=== PATIENT | female | born 1985 | race Caucasian/White ===

== ENCOUNTER 2020-11-21 18:05 | Emergency (ER) | payer BC ==
[2020-11-21 18:13] VITALS: BP 120/81; PULSE 77; TEMP 98.2; BMI 26.3
[2020-11-21] MEDS ORDERED: ACETAMINOPHEN 500 MG TABLET (FP) PO ONE (19:13)
[2020-11-21 20:00] LABS: BASO % 0.3 % (0-2.0); EOS % 2.1 % (0-4.5); HEMATOCRIT 35.7 % (32.4-45.2); LYMPH % 24.8 % (8-40); MCH 29.9 pg (25.7-33.7); MCHC 33.5 g/dl (32.0-36.0); MEAN CELL VOLUME 89.4 fl (80-96); MEAN PLT VOLUME 7.3 fl (7.5-11.1); MONO % 8.5 % (3.8-10.2); NEUT % 64.3 % (42.8-82.8); PLATELET COUNT 258 10^3/uL (134-434); RDW 13.9 % (11.6-15.6); WHITE BLOOD COUNT 6.8 K/mm3 (4.0-10.0)
[2020-11-21 20:17] LABS: PH,URINE 6.5 (5.0-8.0); URINE APPEARANCE Clear; URINE BILIRUBIN Negative (NEGATIVE); URINE COLOR Yellow; URINE GLUCOSE (UA) Negative (NEGATIVE); URINE KETONE Negative (NEGATIVE); URINE LEUK ESTERASE Negative (NEGATIVE); URINE NITRITE Negative (NEGATIVE); URINE PROTEIN Negative (NEGATIVE); URINE UROBILINOGEN 0.2 mg/dL (0.2-1.0)
[2020-11-21] MEDS ORDERED: ACETAMINOPHEN 500 MG TABLET (FP) ONE (20:21)
[2020-11-21 20:23] LABS: BLOOD UREA NITROGEN 8.9 mg/dL (7-18); CALCIUM 8.8 mg/dL (8.5-10.1)
[2020-11-21 20:27] LABS: CREATININE 0.6 mg/dL (0.55-1.3)
== END 2020-11-21 20:42 | disposition home or self-care (01) ==
LOC: JER 18:05
DX: O26.899 Other specified pregnancy related conditions, unspecified trimester (principal); R10.9 Unspecified abdominal pain; Z3A.00 Weeks of gestation of pregnancy not specified
CPT/HCPCS: 36415; 80048; 81003; 84702; 85025; 86850; 86900; 86901; 87086; 99284-25

== ENCOUNTER 2020-11-23 15:10 | Emergency (ER) | payer BC ==
[2020-11-23 15:22] VITALS: BP 102/67; PULSE 78; TEMP 98.5; BMI 26.3
== END 2020-11-23 19:34 | disposition home or self-care (01) ==
LOC: JERFT 15:10
DX: O26.891 Other specified pregnancy related conditions, first trimester (principal); R10.9 Unspecified abdominal pain; Z3A.01 Less than 8 weeks gestation of pregnancy
CPT/HCPCS: 36415; 76817-TC; 84702; 99284-25

== ENCOUNTER 2021-01-09 04:22 | Day surgery (SDC) | payer BC ==
[2021-01-07 13:06] VITALS: BMI 26.5
[2021-01-09] MEDS ORDERED: MIDAZOLAM HCL 2 MG/2 ML SINGLE DOSE VIAL ONE (13:13)
[2021-01-09] MEDS ORDERED: PROPOFOL 20 ML ONE (13:13)
[2021-01-09] MEDS ORDERED: SUCCINYLCHOLINE CHLORIDE 200 MG/10 ML SYRINGE ONE (13:13)
[2021-01-09] MEDS ORDERED: LIDOCAINE HCL/PF 2% SDV 5ML VIAL ONE (13:13)
[2021-01-09] MEDS ORDERED: DEXAMETHASONE SOD PHOSPHATE 4 MG/1 ML VIAL ONE (13:44)
[2021-01-09] MEDS ORDERED: KETOROLAC TROMETHAMINE 30 MG/1 ML VIAL ONE (13:44)
[2021-01-09] MEDS ORDERED: GLYCOPYRROLATE 0.2 MG/1 ML VIAL ONE (14:10)
[2021-01-09] MEDS ORDERED: IBUPROFEN 600 MG TABLET (FP) PO PRN (14:39)
[2021-01-09] MEDS ORDERED: oxyCODONE HCL 5 MG TABLET PO PRN (14:39)
[2021-01-09] MEDS ORDERED: IBUPROFEN 800 MG/8 ML IJ IVPB PRN (14:39)
[2021-01-09] MEDS ORDERED: ONDANSETRON 4 MG/2 ML VIAL IVPUSH PRN (14:39)
[2021-01-09] MEDS ORDERED: ELECTROLYTE-148 SOLN 1,000 ML IV SCH (14:45)
[2021-01-09] MEDS ORDERED: ACETAMINOPHEN 1000 MG/100 ML VIAL (NON FORMULARY) IVPB ONE (14:49)
[2021-01-09] MEDS ORDERED: LACTATED RINGERS SOLUTION 1,000 ML IV SCH (15:00)
[2021-01-09] MEDS ORDERED: ACETAMINOPHEN INJECTION 100 ML IVPB ONE (15:03)
[2021-01-09] MEDS ORDERED: oxyCODONE HCL 5 MG TABLET ONE (17:04)
[2021-01-09 17:51] VITALS: BP 102/64; PULSE 84; TEMP 98.3
== END 2021-01-09 18:03 | disposition home or self-care (01) ==
LOC: JASU-SURG 04:22
PROVIDERS: ATTEND Obstetrics & Gynecology
PROC: 10D17ZZ Extraction of Products of Conception, Retained, Via Natural or Artificial Opening (ICD-10-PCS; principal; 2021-01-09 14:00)
PROC: 0UT74ZZ Resection of Bilateral Fallopian Tubes, Percutaneous Endoscopic Approach (ICD-10-PCS; 2021-01-09 14:00)
DX: O02.1 Missed abortion (principal); Z30.2 Encounter for sterilization
CPT/HCPCS: 88302-TC; 88305-TC; 94760; J0131